=== PATIENT | female | born 1980 | race Caucasian/White ===

== ENCOUNTER → 2017-12-04 10:33 | Outpatient (CLI) | payer BC, SELFPAY ==
--- NOTE | 2017-12-04 10:49 | XR_ITS ---
XR clavicle LT COMPARISON: None HISTORY: Right clavicular and shoulder pain TECHNIQUE: 2 views right clavicle FINDINGS: There is no fracture or dislocation. The AC joint appears normal. Humeral head and glenoid appear normal. There are no soft tissue calcifications. IMPRESSION: Negative right clavicle
--- NOTE | 2017-12-04 10:49 | XR_ITS ---
EXAM: XR cervical spine 5V HISTORY: ITS.REASON: RT CLAVICLE PAIN,C-SPINE PAIN ORDERING PHYSICIAN: Dominga Ritchie PATIENT AGE: 37 years COMPARISON: None FINDINGS: There is straightening of the normal curvature suggesting mild muscle spasm. There is mild disc space narrowing at the C5-6 level with minimal anterior and posterior osteophytic spurring. The remaining disc spaces appear normal. Oblique films show normal neural foramina bilaterally. The prevertebral soft tissues are normal and the odontoid is normal. . IMPRESSION: Findings of mild muscle spasm along with mild degenerative disc disease C5-6
== END ==
PROVIDERS: PCP Nurse Practitioner Family; Visit Provider Nurse Practitioner Family
DX: M54.2 Cervicalgia (principal); M89.8X1 Other specified disorders of bone, shoulder
CPT/HCPCS: 72050; 73000

== ENCOUNTER → 2018-09-10 10:06 | Outpatient (CLI) | payer BC, SELFPAY ==
[2018-09-10 10:54] LABS: Basophils % 0.1 % (0.1-2.0); Eosinophils % 0.5 % (0.1-12.0); Hematocrit 43.7 % (37.0-47.0); Hemoglobin 14.6 g/dL (12.2-16.2); Lymphocytes # 1.4 K/mm3 (0.7-4.5); Lymphocytes % 20.7 % (10-50); Mean Corpuscular HGB Conc 33.4 g/dL (31.8-35.4); Mean Corpuscular Hemoglobin 30.9 pg (27.0-31.2); Mean Corpuscular Volume 92.6 fl (81-99); Mean Platelet Volume 7.1 fl (7.4-10.4); Monocytes # 0.3 K/mm3 (0.1-1.0); Neutrophils # 5.2 K/mm3 (1.8-7.8); Neutrophils % 74.7 % (37.0-80.0); Platelet Count 269 K/mm3 (142-424); Red Blood Count 4.72 M/mm3 (4.20-5.40); Red Cell Distribution Width 12.7 % (11.5-17.5); White Blood Count 6.9 K/mm3 (4.8-10.8)
[2018-09-10 11:08] LABS: HCG Qualitative, Serum Negative (Negative)
[2018-09-10 16:13] LABS: Anion Gap 14.5 mEq/L (5-15); Blood Urea Nitrogen 9 mg/dL (7-18); Calcium 8.9 mg/dL (8.5-10.1); Carbon Dioxide 25 mmol/L (21.0-32.0); Chloride 104 mmol/L (98-107); Creatinine,Serum 0.62 mg/dL (0.55-1.02); Estimated Glomerular Filt Rate 108 ml/min (>60); Free Thyroxine Index 2.3 ug/dL (5.93-13.13); GFR (African American) 130 ML/MIN (>60); Glucose 93 mg/dL (74-106); Potassium 4.5 mmoL/L (3.5-5.1); Sodium 139 mmol/L (136-145); T4 (Thyroxine) 7.1 ug/dl (4.7-13.3); Thyroid Stimulating Hormone 1.11 uIU/ml (0.358-3.740); Triiodothryronine (T3) Uptake 32 % (31-39)
== END ==
PROVIDERS: Visit Provider Nurse Practitioner Obstetrics & Gynecology
DX: Z01.818 Encounter for other preprocedural examination (principal); R53.82 Chronic fatigue, unspecified
CPT/HCPCS: 36415; 80048; 84436; 84443; 84479; 84703; 85025

== ENCOUNTER → 2019-01-27 16:34 | Outpatient (CLI) | payer BC, SELFPAY ==
--- NOTE | 2019-01-27 16:37 | US_ITS ---
PROCEDURE: US TRANSVAGINAL CLINICAL INDICATION: Heavy Bleeding, pelvic pain, endometriosis Heavy painful periods COMPARISON: No exams were available for comparison FINDINGS: Uterus measures 8 x 4 x 4 cm with a combined endometrial thickness of 7 mm. No uterine mass is evident. The right ovary is 2.8 x 2 cm and contains a central cystic area of approximately 1 cm. Blood flow is present to the right ovary. There has been prior left oophorectomy. No cul-de-sac fluid apparent. IMPRESSION: Prior left oophorectomy otherwise negative pelvic ultrasound Dictated by: Nilesh Penn MD 01/27/2019 18:10 Electronically signed by Nilesh Penn MD in [place] 01/27/2019 18:10
== END ==
PROVIDERS: PCP Family Medicine; Visit Provider Nurse Practitioner Obstetrics & Gynecology
DX: N80.9 Endometriosis, unspecified (principal); N92.0 Excessive and frequent menstruation with regular cycle; N94.6 Dysmenorrhea, unspecified; R10.2 Pelvic and perineal pain
CPT/HCPCS: 76830

== ENCOUNTER 2019-03-05 06:12 | Observation (INO) ==
--- NOTE | 2019-03-05 07:11 | Progress Note ---
[facility] Anesthesia Checklist - Patient Identification Patient Identification: Arm Band, Verbal (Name & ) - Structural Data Admitted From: Home Planned Operative Procedure/s: LAVH Consent for Planned Operative Procedure(s) Verified: Yes Verified Documents: Surgical Consent, History and Physical - NPO Status Verified Time NPO: 20:30 - Chart Verification Results Verified: CBC, BMP - Additional verifications Anesthesia Reactions: No Hx Blood Transfusions: Yes Blood Transfusion Reaction: No - Airway Assessment C-Spine Mobility Assessed: Yes TMJ Mobility Assessed: Yes Dentition: Good Dentition - Neurological Assessment Level of Consciousness: Awake, Alert, Appropriate, Follows Commands Hx Seizures: No Numbness or tingling in extremities: No - Anesthesia Plan Anesthesia Risk discussed: Yes Anesthesia Plan: Verified ASA Class: I Anesthesia Type: General [facility] History I have reviewed the patient's past medical history: Yes Medical History: Denies:: Cancer, Diabetes Mellitus Type 1, Diabetes Mellitus Type 2, Internal Pacemaker, MRSA, Seizures *Have you ever received a pneumonia vaccine?: No *Have you received a flu vaccine this season?: No Other Medical History: Denies: Blood Transfusion Reaction Anesthesia experience/problems:: No complications Other Surgeries: Yes: Cholecystectomy, Other. 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
[2019-03-05 07:16] LABS: Basophils % 0.3 % (0.1-2.0); Eosinophils # 0.1 K/mm3 (0.0-0.4); Eosinophils % 2.2 % (0.1-12.0); Hematocrit 43.5 % (37.0-47.0); Hemoglobin 14.3 g/dL (12.2-16.2); Lymphocytes # 1.4 K/mm3 (0.7-4.5); Lymphocytes % 22.8 % (10-50); Mean Corpuscular HGB Conc 32.8 g/dL (31.8-35.4); Mean Corpuscular Volume 96.5 fl (81-99); Monocytes # 0.3 K/mm3 (0.1-1.0); Monocytes % 5.4 % (1.7-9.3); Neutrophils # 4.2 K/mm3 (1.8-7.8); Neutrophils % 69.4 % (37.0-80.0); Platelet Count 307 K/mm3 (142-424); Red Blood Count 4.51 M/mm3 (4.20-5.40); Red Cell Distribution Width 12.9 % (11.5-17.5); White Blood Count 6.1 K/mm3 (4.8-10.8)
[2019-03-05 07:27] LABS: Anion Gap 15.9 mEq/L (5-15); Calcium 8.8 mg/dL (8.5-10.1)
--- NOTE | 2019-03-05 09:35 | Progress Note ---
[facility] Anesthesia Record Part II Discharge Time: 10:02 Destination: Medical Surgical Department PACU nurse assessment reviewed?: Yes Patient Condition:: Good Anesthesia Complications:: None Swallowing reflex intact?: Yes Cyanosis?: No
--- NOTE | 2019-03-05 09:35 | Progress Note ---
[facility] Anesthesia Record Part I Intake, IV Amount: 1,000 Estimated blood loss (mL): 250 Urine output (mL): 25 Blood Products used (#): none Blood Pressure: 111/83 SaO2: 97 Pulse Rate: 108 Respiratory Rate: 10 Temperature: 99.4 F Patient is:: Awake, Drowsy, Stable Stable to PACU at:: 09:32
--- NOTE | 2019-03-05 09:39 | Operative Note ---
Date of procedure: 03/05/19 Pre-op Diagnosis:: Pelvic pain, dysmenorrhea, history of endometriosis Post-op Diagnosis:: Pelvic pain, dysmenorrhea, endometriosis, subserous fibroid Procedure performed:: Laparoscopically assisted vaginal hysterectomy, right salpingectomy Surgeon:: Teo Lewis MD Uniform Patrol Police Officer(s):: Nga Harvey ASSOCIATE MEDIA PLANNER:: Piter Phipps Anesthesia: GETA Estimated blood loss (mL): 250 Clinical Note:: She is a 39-year-old 3 para 2 aborta 1 who has a history of endometriosis. She has had previous laparoscopic surgery for this. She is had a previous left salpingo-oophorectomy. She continued to have severe pelvic pain, dysmenorrhea, dyspareunia. After having discussed the risks and benefits she elected to have a laparoscopically assisted vaginal hysterectomy and right salpingectomy. Operative findings:: She had an anteverted slightly bulky uterus. There was a 1 cm subserosal pedunculated fibroid on the fundus of the uterus. There were thick adhesions along the bladder from her previous section. Her left ovary and tube were absent. There was black powder burn areas on the posterior cervix consistent with endometriosis. The right ovary and tube appeared normal. The upper abdomen appeared normal. The rest of the deep pelvis appeared normal. Operative note:: She was taken to the operating room where general anesthesia was found be adequate. She was prepped and draped in normal sterile fashion in the semilithotomy position. A weighted speculum was placed in the vagina and the anterior lip of the cervix was grasped with a tenaculum. An acorn uterine manipulator was then placed within the cervical os. I then changed gloves. I injected 10 cc of 0.5% ropivacaine around the umbilicus and made a small incision within the umbilicus. I inserted a Veress needle into the abdominal cavity. The abdominal cavity was then insufflated with carbon dioxide gas to a pressure of 20 mmHg. I then inserted an 11 mm trocar under direct vision. I injected through and through the pubic hairline, made a small incision here and inserted a 5 mm trocar under direct vision. I identified the inferior epigastric arteries on the left side, went lateral to these and injected through and through. I then made a small incision and inserted an 11 mm trocar under direct vision. A similar 11 mm trocar was placed on the right side. I elected to open along the bladder flap with harmonic scalpel. I went from left round ligament to right round ligament. The left round ligament was then grasped and cut through with harmonic scalpel. I then took down the posterior aspect of the broad ligament to the level of the uterosacral ligament. I then skeletonized the uterine arteries on the left side and placed hemoclips on these. Using the harmonic scalpel on coagulation mode adjacent to the cervix I then took down these uterine arteries. I then further freed up the bladder anteriorly and laterally on the left side. I then turned my attention to the right side where I grasped the right round ligament. I then cut through the right round ligament. I further dissected the bladder off. The right tube was then cut followed by the right utero- ovarian ligament. The posterior aspect of the right broad ligament was then ta nahomi down with harmonic scalpel. I skeletonized the uterine arteries on the right side. I applied hemoclips to the uterine arteries and staying adjacent to the cervix on the right side I took down the uterine arteries with harmonic scalpel on coagulation mode. I further freed up the bladder. We then assured hemostasis. I then grasped the distal end of the right tube and using harmonic scalpel I cut along the mesosalpinx. The tube was removed through the 11 mm trocar site. After once again assuring hemostasis we then turned our attention to the vaginal portion of the surgery. The patient was placed in the lithotomy position and a weighted speculum was placed in the vagina. The anterior and posterior lip of the cervix were grasped with Patiño tenacula. I then injected 20 cc of 1% Xylocaine with epinephrine circumferentially about the cervix. I then circumscribed the cervix. I opened up in the posterior cul-de-sac using Auguste scissors. I then placed a long weighted speculum through the defect. The left uterosacral ligament was then clamped cut and suture-ligated and tagged. This was followed by the left cardinal ligament which was clamped cut and suture-ligated. I then clamped cut and suture-ligated and tagged the right uterosacral ligament. This was followed by the right cardinal ligament which was clamped cut and suture-ligated. I then grasped the anterior vaginal mucosa and using both sharp and blunt dissection dissected off the bladder. I then opened sharply into the anterior cul-de-sac. A [place] retractor was placed through this defect. Both left and right uterine arteries were then clamped cut and suture-ligated. This freed up the uterus and it was removed through the vagina. Then inserted a short weighted speculum. Posterior cuff was then closed using running 2-0 Vicryl suture in a locked fashion. I then placed a Wilkerson suture using 0 PDS. I passed it through the vagina and the peritoneum and then through the left perirectal fascia. I then plicated across the posterior peritoneum and through the right perirectal fascia. This was then passed through the peritoneum and vagina and left to be tied at the end. I then grasped the anteri or peritoneum and using 2-0 PDS suture in a pursestring fashion I closed the peritoneum. The vaginal cuff was then closed using running 0 Vicryl suture in a locked fashion from left to right from anterior to posterior. A Pastor cath was then placed in the bladder. Clear urine was seen to flow. I then changed gloves and once again insufflated the abdominal cavity with carbon dioxide gas. Hemostasis was once again assured and I rinsed the pelvis. There was a small amount of bleeding at the utero-ovarian ligament adjacent to the ovary and I placed hemoclips here to obtain excellent hemostasis. I then sprayed Anitha all around the pelvis. I injected approximately 20 cc of 0.5% ropivacaine into the pelvis. I let the gas out of the abdomen and once again hemostasis was assured. The secondary trochars were then removed under direct vision and the sites were hemostatic. The primary trocar and camera were removed together. No bowel was seen to follow. The 11 mm trocar sites were closed deeply with [id number] 2-0 Vicryl suture followed by running subcuticular 4-0 Monocryl suture. 5 mm trocar site was closed with subcuticular 4-0 Monocryl suture. Sterile dressings were applied. The patient tolerated procedure well and was taken to the recovery room in excellent condition. All sponge instrument and needle counts were correct. The estimated blood loss was approximately 250 cc. Condition: stable Disposition: PACU Specimens:: Uterus and right fallopian tube Complications:: None
--- NOTE | 2019-03-05 15:56 | Pharmacy Consult Notes ---
[facility] Pharmacy VTE Monitoring - Patient Demographics Admission date: 03/05/19 Report Date: 03/05/19 Time: 15:56 Allergies/Adverse Reactions: Patient Allergies No Known Allergies Allergy (Verified 03/04/19 10:47) Height: 1.52 m Weight: 68.492 kg - VTE Risk Labs: VTE Related Lab Results Hgb 14.3 g/dL (12.2-16.2) 03/05/19 06:45 Hct 43.5 % (37.0-47.0) 03/05/19 06:45 Plt Count 307 K/mm3 (142-424) 03/05/19 06:45 BUN 14 mg/dL (7-18) 03/05/19 06:45 Creatinine 0.63 mg/dL (0.55-1.02) 03/05/19 06:45 Estimated Creat Clear 130 mL/min (50-200) 03/05/19 06:45 Was VTE Risk Assessment Performed: Yes VTE Score: 0 VTE Risk Level: Low Risk Clinical Trial Participant: No - Prophylaxis VTE Prophylaxis Ordered?: Yes Types of VTE Prophylaxis: Pharmacological Location of Applied Device: Bilateral Lower Extremeties Pharmacologic Type: Enoxaparin
[2019-03-05 16:11] LABS: Hematocrit 41.2 % (37.0-47.0); Hemoglobin 13.2 g/dL (12.2-16.2)
[2019-03-06 06:52] LABS: Basophils % 0.1 % (0.1-2.0); Eosinophils % 0.4 % (0.1-12.0); Hematocrit 35.8 % (37.0-47.0); Lymphocytes # 1.8 K/mm3 (0.7-4.5); Lymphocytes % 22.3 % (10-50); Mean Corpuscular HGB Conc 32.5 g/dL (31.8-35.4); Mean Corpuscular Volume 94.6 fl (81-99); Mean Platelet Volume 8.1 fl (7.4-10.4); Monocytes # 0.5 K/mm3 (0.1-1.0); Monocytes % 5.8 % (1.7-9.3); Neutrophils # 5.6 K/mm3 (1.8-7.8); Neutrophils % 71.4 % (37.0-80.0); Platelet Count 266 K/mm3 (142-424); Red Blood Count 3.78 M/mm3 (4.20-5.40); Red Cell Distribution Width 12.7 % (11.5-17.5); White Blood Count 7.9 K/mm3 (4.8-10.8)
[2019-03-06 06:57] LABS: Anion Gap 9.7 mEq/L (5-15); Calcium 8.5 mg/dL (8.5-10.1)
[2019-03-06 07:33] LABS: Hemoglobin 11.7 g/dL (12.2-16.2)
--- NOTE | 2019-03-06 08:45 | Discharge Summary ---
General - General Admission date:: 03/05/19 Discharge date: 03/06/19 HPI HPI: She is a 39-year-old lady that complains of severe pain with intercourse as well as severe pain with her periods. She has been diagnosed with endometriosis in the past. As a result of this we have elected to perform a laparoscopic- assisted vaginal hysterectomy and right salpingectomy. She has had a previous LSO. Hospital Course Hospital Course: On March 05, 2019 she underwent a laparoscopically assisted vaginal hysterectomy and right salpingectomy. She has done well postoperatively and has remained afebrile throughout her hospitalization. She is eating and drinking and ambulating. Her pain is well controlled. She denies any chest pain, shortness of breath or calf tenderness. She is discharged home to follow-up with me in approximately 2 weeks time. She will take ibuprofen and was given a prescription for Percocet 5/325 number 20 tablets. She will keep her incisions clean and dry. She will change a Band-Aid as needed. She was given the usual instructions with respect to limiting her activity, driving and sexual activity. Her condition on discharge is stable. Objective Vital signs: Temp Pulse Resp BP Pulse Ox 97.9 F 86 18 122/86 100 03/06/19 08:00 03/06/19 08:00 03/06/19 08:00 03/06/19 08:00 03/06/19 08:00 no acute distress - *Routine HEENT Exam Head: Present: normocephalic - *Routine Respiratory Exam Absent: accessory muscle use, respiratory distress Comments: She has good air entry bilaterally. - *Routine Cardiovascular Exam Present: RRR - *Routine Abdominal Exam Present: soft Comments: Her incisions are clean and dry. There is a small amount of bruising around the left lower quadrant incision but has not grown any larger. We had marked it yesterday with a sharpie - *Routine Extremities Exam Absent: cyanosis, edema Results Labs on day of discharge: Labs from last 24 hours 03/06/19 03/06/19 03/05/19 06:18 06:18 16:02 WBC 7.9 D RBC 3.78 L Hgb 11.7 L D 13.2 Hct 35.8 L 41.2 MCV 94.6 MCH 30.7 MCHC 32.5 RDW 12.7 Plt Count 266 MPV 8.1 Neut % (Auto) 71.4 Lymph % (Auto) 22.3 [place] % (Auto) 5.8 Eos % (Auto) 0.4 Baso % (Auto) 0.1 Neut # (Auto) 5.6 Lymph # (Auto) 1.8 [place] # (Auto) 0.5 Eos # (Auto) 0.0 Baso # (Auto) 0.0 Sodium 141 Potassium 3.7 Chloride 107 Carbon Dioxide 28 D Anion Gap 9.7 BUN 7 D Creatinine 0.67 Estimated Creat Clear 122 Estimated GFR 98 Est GFR ( Amer) 119 Glucose 97 Calcium 8.5 Urine Color Urine Appearance Urine pH Ur Specific Foley Urine Protein Urine Glucose (UA) Urine Ketones Urine Blood Urine Nitrate Urine Bilirubin Urine Urobilinogen Ur Leukocyte Esterase Urine RBC Ur Squamous Epith Cells Urine Bacteria 03/05/19 08:52 WBC RBC Hgb Hct MCV MCH MCHC RDW Plt Count MPV Neut % (Auto) Lymph % (Auto) [place] % (Auto) Eos % (Auto) Baso % (Auto) Neut # (Auto) Lymph # (Auto) [place] # (Auto) Eos # (Auto) Baso # (Auto) Sodium Potassium Chloride Carbon Dioxide Anion Gap BUN Creatinine Estimated Creat Clear Estimated GFR Est GFR ( Amer) Glucose Calcium Urine Color Yellow Urine Appearance Clear Urine pH 6.0 Ur Specific Foley 1.020 Urine Protein Negative Urine Glucose (UA) Negative Urine Ketones Negative Urine Blood 2+ Urine Nitrate Negative Urine Bilirubin Negative Urine Urobilinogen 0.2 Ur Leukocyte Esterase Negative Urine RBC Occasional Ur Squamous Epith Cells Occasional Urine Bacteria Trace DS: Diagnosis - Discharge Diagnosis (1) Dyspareunia Status: Acute (2) Dysmenorrhea Status: Acute (3) Fibroids, subserous Status: Acute (4) Endometriosis Status: Acute Discharge Plan - Patient Discharge Instructions ACTIVITY: No heavy lifting DIET: continue same diet - Follow up Plan Disposition: Home, Self-Snf Medications: Home Medications Medication Instructions Recorded Confirmed Type No Known Home Medications 09/10/18 03/04/19 History Oxycodone HCl/Acetaminophen 1 - 2 tab PO Q4-6H PRN #20 tab 03/06/19 Rx [Percocet 5/325mg tablet] Prescriptions/Medication Reconciliation: New Oxycodone HCl/Acetaminophen [Percocet 5/325mg tablet] 1 - 2 tab PO Q4-6H PRN #20 tab PRN Reason: Severe Pain No Action No Known Home Medications - Problem Reconciliation Problems Reviewed?: Yes
--- OUTSIDE RECORDS SUMMARY | 2019-03-06 09:30 | External Medical Summary | Continuity of Care Document ---
:1980 Author Organization [facility] Address [address] [place] [address] Eas t [place] [address] Phone Care Team Providers Name Role Phone Joshua Attending Provider Chau Primary Care Provider Mirta Ortiz Primary Care Provider Allergies, Adverse Reactions, Alerts No known allergies. Medications No known medications. Problems Active Problems Medical Problem Onset Date Status Fibroids, subserous Active Dysmenorrhea Active Dyspareunia Active Endometriosis Active Procedures Procedure Date Performed Status US transvaginal January 27, 2019 completed Laparoscopic Assisted Vaginal Hystectomy (Not March 05, 2019 7:49am completed Applicable) March 05, 2019 7:30am completed March 05, 2019 7:30am completed March 05, 2019 7:30am completed Relevant Diagnostic Tests and/or Laboratory Data Laboratory Results Test Date/Time Result Interpretation Reference Result Perfo rming Range Comment Site White Blood February 7.9 K/mm3 4.8-10.8 Delta: [facility], [address] [place] [address] E Count 2018 6.1 on 6:18am 03/05/19- [place] [id number] Red Blood Count February 3.78 M/mm3 4.20-5.40 [facility], [address] [place] [address] 36 E 2018 6:18am [place] [address] Hemoglobin February 11.7 g/dL 12.2-16.2 Delta: [place] [address] E 2018 13.2 on 6:18am 03/05/19- [place] [address] 1602 Hematocrit October 35.8 % 37.0-47.0 [facility], [address] [place] [address] E 2018 6:18am [place] [address] Mean February 94.6 fl 81-99 [facility], [address] [place] [address] E Corpuscular 2018 Volume 6:18am [place] [address] Mean February 30.7 pg 27.0-31.2 [facility], [address] [place] [address] E Corpuscular 2018 Hemoglobin 6:18am [place] 84147 Mean February 32.5 g/dL 31.8-35.4 [facility], [address] [place] [address] E Corpuscular 2018 Hemoglobin 6:18am [place] [address] Concent Red Cell February 12.7 % 11.5-17.5 [facility], [address] [place] [address] E Distribution 2018 Width 6:18am [place] [address] Platelet Count February 266 K/mm3 142-424 [facility], [address] [place] [address] E 2018 6:18am [place] 533[address] Mean Platelet February 8.1 fl 7.4-10.4 [facility], [address] [place] [address] E Volume 2018 6:18am [place] 43785 Neutrophils (%) February 71.4 % 37.0-80.0 [facility], [address] [place] [address] E (Auto) 2018 6:18am [place] 10549 Lymphocytes (%) February 22.3 % 10-50 [facility], [address] [place] [address] E (Auto) 2018 6:18am [place] [address] Monocytes (%) February 5.8 % 1.7-9.3 [facility], [address] [place] [address] E (Auto) 2018 6:18am [place] [address] Eosinophils (%) February 0.4 % 0.1-12.0 [facility], [address] [place] [address] E (Auto) 2018 6:18am [place] [address]14[address] Basophils (%) October 0.1 % 0.1-2.0 [place] [facility], [address] [place] [address] 36 E (Auto) 2018 6:18am [place] [address] Neutrophils # October 5.6 K/mm3 1.8-7.8 [facility], [address] [place] [address] 36 E (Auto) 2018 6:18am [place] [address]269 Lymphocytes # October 1.8 K/mm3 0.7-4.5 [facility], [address] [place] [address] E (Auto) 2018 6:18am [place] [address] Monocytes # October 0.5 K/mm3 0.1-1.0 [facility], [address] [place] [address] E (Auto) 2018 6:18am [place] 23785 Eosinophils # October 0.0 K/mm3 0.0-0.4 [facility], [address] [place] [address] E (Auto) 2018 6:18am [place] [address] Basophils # October 0.0 K/mm3 0-0.2 [facility], [address] [place] [address] E (Auto) 2018 6:18am [place] [address]74 Urine Color October Yellow Yellow [facility], [address] [place] [address] E 2018 8:52am [place] [address] Urine October Clear Clear [facility], [address] [place] [address] E Appearance 2018 8:52am [place] [address] Urine pH February 6.0 5.0-8.5 [facility], [address] [place] [address] E 2018 8:52am [place] [address]3798 Urine Specific October 1.020 1.005-1.030 [facility], [address] [place] [address] 36 E [place] 2018 8:52am [place] [address] Urine Protein October Negative Negative [facility], [address] [place] [address] E 2018 8:52am [place] [address] Urine Glucose October Negative Negative [facility], [address] [place] [address] E (UA) 2018 8:52am [place] [address] Urine Ketones October Negative Negative [facility], [address] [place] [address] 36 E 2018 8:52am [place] 84802 Urine Blood October 2+ Negative [facility], [address] [place] [address] 36 E 2018 8:52am [place] [address] Urine Nitrate October Negative Negative [facility], [address] [place] [address] 36 E 2018 8:52am [place] [address] Urine Bilirubin October Negative Negative [facility], [address] [place] [address] E 2018 8:52am [place] [address] Urine October 0.2 EU/dl [facility], [address] [place] [address] E Urobilinogen 2018 8:52am [place] 40[address] Urine Leukocyte October Negative Negative [facility], [address] [place] [address] E Esterase 2018 8:52am [place] [address] Urine RBC October Occasional # [facility], [address] [place] [address] 36 E 2018 /hpf 8:52am [place] [address] Urine Squamous October Occasional [facility], [address] [place] [address] E Epithelial 2018 #/hpf Cells 8:52am [place] [address] Urine Bacteria February Trace /lpf None [facility], [address] [place] [address] 36 E 2018 8:52am [place] [address]54[address] Urine HCG, October Negative Negative [facility], [address] [place] [address] 36 E Qualitative 2018 6:20am [place] [address] Sodium Level February 141 mmol/L 136-145 [facility], [address] [place] [address] 36 E 2018 6:18am [place] [address] Potassium Level February 3.7 mmoL/L 3.5-5.1 [facility], [address] [place] [address] 36 E 2018 6:18am [place] [address] Chloride Level February 107 mmol/L 98-107 [facility], [address] [place] [address] 36 E 2018 6:18am [place] [address] Carbon Dioxide February 28 mmol/L 21.0-32.0 Delta: 23 [facility], [address] [place] [address] E Level 2018 on 6:18am 03/05/19- [place] [address] 0645 Anion Gap February 9.7 mEq/L 5-15 [facility], [address] [place] [address] 36 E 2018 6:18am [place] [address] Blood Urea February 7 mg/dL -18 Delta: 14 [facility], [address] [place] [address] 36 E Nitrogen 2018 on 6:18am 03/05/19- [place] [address] 0645 Creatinine February 0.67 mg/dL 0.55-1.02 [facility], [address] [place] [address] 36 E 2018 6:18am [place] [address] Estimated October 122 mL/min 0-300 [facility], [address] [place] [address] 36 E Creatinine 2018 Clearance 6:18am [place] [address] Estimated GFR February 119 ML/MIN >59 [facility], [address] [place] [address] 36 E ( 2018 Gambian) 6:18am [place] [address] Estimat February 98 ml/min >59 [facility], [address] [place] [address] 36 E Glomerular 2018 Filtration Rate 6:18am [place] [address] Glucose Level February 97 mg/dL 74-106 [facility], [address] [place] [address] 36 E 2018 6:18am [place] [address] Calcium Level February 8.5 mg/dL 8.5-10.1 [facility], [address] [place] [address] 36 E 2018 6:18am [place] [address] Diagnostic Imaging Reports Report Dictated Date/Time Dictated By Status Radiology Report January 27, 2019 4:55pm [facility] [address] [place] [address] Ultrasoun d Report Sig jethro Patient: Elva Kim MR#: [id number] 3024 : 1980 Acct:[id number] Age/Sex: 39 / F ADM Date: 9 Loc: RAD Attending Dr: Teo Lewis MD Ordering Physician: Teo Lewis MD Date of Service: 01/27/19 Procedure(s): US transvaginal Accession Number(s): [id number] cc: Nilesh Penn MD; Rishi Ortiz MD~ PROCEDURE: US TRANSVAGINAL CLINICAL INDICATION: Heavy Bleeding, p elvic pain, endometriosis Heavy painful periods COMPARISON: No exams were available fo r comparison FINDINGS: Uterus measures 8 x 4 x 4 cm with a co mbined endometrial thickness of 7 mm. No uterine mass is evident. The right ovary is 2.8 x 2 cm and contains a central cystic area of a pproximately 1 cm. Blood flow is present to the right ovary. There h as been prior left oophorectomy. No cul-de-sac fluid appa rent. 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 F/U u/s OR Reason for Visit Dysmenorrhea Dyspareunia Endometriosis Fibroids, subserous Encounters Encounter Location(s) Arrival/Admit Date Discharge/Depart Date Provider(s) Departed [facility] Physician January 27, January 27, 2019 Junie hoa Lewis , Physician/[facility] 2019 2:40pm 4:14pm junie [facility] Joshua Visit Registered [facility] Physician January 27, Teo mcdermott , Clinical Group-Radiology 2018 4:34pm MD Admitted [facility] Physician March 05, 2019 Teo san , Inpatient Group-Obstetric 6:18am Registered [facility] Physician March 06, 2019 Teo san , Inpatient Group- 9:14am Recent Diagnosis Onset Date Dysmenorrhea Dyspareunia Endometriosis Fibroids, subserous Assessments Diagnosis Onset Date Resolution Status Dysmenorrhea acute Dyspareunia acute Endometriosis acute Fibroids, subserous acute Functional Status Observation Response Date Recorded Oral Care Ability Independent March 05, 2019 6 :19am Bathing Ability Independent March 05, 2019 6 :19am Eating (Feeding) Ability Independent March 05 019 6:19am Toileting Ability Independent March 05, 2019 6 :19am Ambulation Ability Independent March 05, 2019 6 :19am Functional status ambulatory January 27, 2019 4:03pm Goals No Goals Information Available Immunizations Immunization Event Date Not Given Dose Onion Tier Lot Number Va ccine Reason Number Informatio n Statement (VIS) Detail Td (adult), 5Lf December VIS not given tetanus toxoid, 2007 PF, adsorbed Mental Status Observation Response Date Recorded Comprehension Ability No Impairment March 06, 2019 8:00am Able to Read Yes March 05, 2019 6 :19am Able to Write Yes March 05, 2019 6 :19am Ability to Follow Directions Good February 6:36am Eye Contact Direct Eye Contact March 05, 2019 6 :19am Oral Expression Ability No Impairment March 05 6:19am Medical Equipment No Medical Equipment Information available Insurance Providers Guarantor Elva Kim Address [address] [facility] [address] Contact Info. Home Phone: Payer Policy Id Coverage Id Subscriber's Subscriber Id Effective E xpiration Name Date Date Qing Wallace [id number] Elva Kim [id number] Card 51 1 Program Out Self Pay Self N/A Plan of Treatment She has had a previous laparoscopy with removal of her appendix and one ovary and tube. She is not sure which ovary has been removed. She has a long history of endometriosis with dysmenorrhea and pelvic pain. She occasionally has dyspareunia and she has heavy periods. She would like to go ahead with a hysterectomy. We have suggested a laparoscopically assisted vaginal hysterectomy and salpingectomy. I would like to leave the remaining ovary if possible. We will make arranges for her to have a transvaginal ultrasound and some blood work. Today we discussed the risk of surgery that includes bleeding, infection, injury to bowel and bladder. We discussed the risk of laparotomy as result of her previous surgery. I quoted her about 10% that she may need a Pfannenstiel incision. We discussed the risks of injury to the ureter. We discussed the need for DVT prophylaxis. All questions were answered and consents were signed. Future Tests Future scheduled test information is unavailable Pending Tests Pending diagnostic test information is unavailable Future Visits Future appointment information is unavailable Referrals to Other Providers Reason for Referral Start Provider Provider Contact Provider Address Referral Date Information Admission to [facility] March [address] Future Procedures Future procedure information is unavailable Future Medications Future medication information is unavailable Patient Instructions Endometriosis Dyspareunia DI for Dysmenorrhea Social History Assigned Sex Female Vital Signs Vital Reading Result Reference Range Collection Date/ Time Height 152.4 cm January 27, 2019 2:52pm Weight 68.71 kg January 27, 2019 2:52pm BP Systolic 120 mm[Hg] 110-140 January 27, 2019 2:52pm BP Diastolic 74 mm[Hg] 60-90 January 27, 2019 2:52pm BMI (Body Mass Index) 29.5 kg/m2 January 27, 2019 2:52pm Height 152.4 cm March 05 6:22am Weight 68.49 kg March 05 6:22am Body Temperature 97.9 [degF] 97.6-99.6 March 06, 2 019 8:00am Heart Rate 86 /min -March 06 8:00am Respiratory rate 18 /min -March 06, 2 019 8:00am Oxygen saturation by Pulse 100 % 95-100 Octob 2018 8:00am oximetry BP Systolic 122 mm[Hg] 110-140 March 06 8:00am BP Diastolic 86 mm[Hg] 60-90 March 06 8:00am BMI (Body Mass Index) 29.5 kg/m2 March 052018 6:22am
== END 2019-03-06 09:47 | disposition home or self-care (01) ==
LOC: OR 06:12 → 2ND 06:18 → INTOOBSV 06:18 → OB 07:17
PROVIDERS: ADMIT Nurse Practitioner Obstetrics & Gynecology; ATTEND Nurse Practitioner Obstetrics & Gynecology
CPT/HCPCS: 36415; 80048; 81001; 81025; 85014; 85018; 85025; 96372; 96374; G0378; J2405

== ENCOUNTER 2019-10-08 14:14 | Emergency (ER) | payer BC, SELFPAY ==
[2019-10-08 14:29] VITALS: BP 170/101; PULSE 86; RESP 18; TEMP 36.8; O2SAT 99; BMI 30.1
--- NOTE | 2019-10-08 14:37 | HMH.EDUTC ---
[facility] [place]ression[place] Right leg pain Disposition: Home, Self-Care Condition on Discharge: Good Instructions: DI for Leg Pain Additional Instructions: Rest the extremity, Elevate the extremity as tolerated while you are resting. Take ibuprofen for pain. I sent in a prescription to your pharmacy. Follow up with Dr. Davies (orthopedics) if your pain continues. I put in a referral but you'd need to call her office and schedule an appointment. Follow up with your regular doctor. GO TO THE ER FOR ANY WORSENING SYMPTOMS Prescriptions: Ibuprofen [Ibuprofen 800mg Tablet] 800 mg PO Q8HP PRN #30 tab PRN Reason: Moderate Pain Transmission Status: Received by [facility] #[id number] Referrals: Dominga Ritchie APRN [Primary Care Provider] - Fannie Davies MD [Physician] - Time of Disposition: 15:27 Medical Decision Making - Medical Records Medical records reviewed: No: I reviewed the patient's medical records. - [place] Inquiry Pt receiving controlled substance: No Vital Signs: 10/08/19 14:29 10/08/19 14:52 10/08/19 15:23 Temperature 98.2 F 98.2 F Temperature Source Oral Pulse Rate 86 Pulse Rate [Right Brachial] 86 Respiratory Rate 18 18 Blood Pressure 143/94 H Blood Pressure [Left Arm] 143/94 H Blood Pressure [Right Arm] 170/101 H Blood Pressure Mean [Left Arm] 110 Blood Pressure Mean [Right Arm] 124 Blood Pressure Source [Left Arm] Automatic Cuff Blood Pressure Source [Right Arm] Automatic Cuff Blood Pressure Position [Left Arm] Sitting Blood Pressure Position [Right Arm] Sitting 02 Sat by Pulse Oximetry 99 Oxygen Delivery Method Room Air - US Data US Images: Lower Extremity ED US Reviewed: Yes: I have reviewed the patient's US results, I have viewed radiologist's interpretation Preliminary Findings: Normal/NAD Findings Narrative: negative for DVT [facility] [place] - General Stated complaint: righ leg pain in lower leg Time Seen by Provider: 10/08/19 14:37 Mode of Arrival: Ambulatory Source of Information: Patient Limitations: No Limitations Description of Symptoms (Recalled from Triage Doc. by RN): PATIENT C/O RIGHT CALF AND KNEE PAIN AND SWELLING SINCE LAST NIGHT. NO KNOWN INJURY. STATES THAT PAIN OCCURS WITH EXTENTION OF FOOT. STRONG PEDAL PULSE NOTED HEENT Symptoms (Recalled from RN notes): No Resp Symptoms (Recalled from RN notes): No Skin Symptoms (Recalled from RN notes): No MS Symptoms (Recalled from RN notes): Yes Functional Status (Recalled from RN notes): WNL - History of Present Illness Provider Complaint: She c/o right calf pain that is worse with flexing and extending her foot since yesterday. She also states that her right calf seems a little swollen. She denies any family or personal history of dvt. She does not take hormonal control. She does smoke though. - Related Data Previous Rx's Medication Instructions Recorded Ibuprofen [Ibuprofen 800mg 800 mg PO Q8HP PRN #30 tab 10/08/19 Tablet] Allergies Allergy/AdvReac Type Severity Reaction Status Date / Time No Known Allergies Allergy Verified 03/20/19 11:00 - Worker's Comp Is this a Worker's Comp case?: No [facility] History - Hepatitis A Screen Drug use history?: No High risk sexual behaviors?: No History of sexually transmitted infection?: No Currently employed?: No Childcare worker?: No Do you have indoor plumbing?: Yes Do you have electricity?: Yes Attestation statement:: This patient has been screened for Hepatitis A risk factors. I have reviewed the patient's past medical history: Yes Medical History: Denies:: Cancer, Diabetes Mellitus Type 1, Diabetes Mellitus Type 2, Internal Pacemaker, MRSA, Seizures Other Medical History: Denies: Blood Transfusion Reaction Other Surgeries: Yes: Cholecystectomy, Hysterectomy-Total, Other. No: Pacemaker Amputation: No Fractures: No - Social History Sm[facility] Status: [facility]
--- NOTE | 2019-10-08 14:45 | CA_ITS ---
APPROVED REPORT Right Lower Extremity Venous Study for DVT. On Air Talent: Ashli Boyce RVT Indications Lower Extremity Pain: Right Lower Extremity Edema: Right PAIN/SWELLING TO CALF Vein Imaging CFV (R): compressive, spontaneous, phasic, augmentation FEM (R): compressive, spontaneous, phasic, augmentation POP (R): compressive, spontaneous, phasic, augmentation PTV (R): Compressible GSV (R): Compressible Peroneals (R):Compressible GAS (R): Compressible Findings Study suggests no evidence of DVT of the right lower extremity. Study suggests no evidence of SVT of the right lower extremity. Conclusion No evidence of DVT or superficial thrombophlebitis in the veins scanned of the right lower extremity. Electronically signed by : Nilesh Penn MD 10/09/2019 16:32:27
[2019-10-08 14:52] VITALS: BP 143/94
[2019-10-08 15:23] VITALS: BP 143/94; PULSE 86; RESP 18; TEMP 36.8; O2SAT 99
== END 2019-10-08 15:32 | disposition home or self-care (01) ==
PROVIDERS: Emergency Provider Nurse Practitioner Family; PCP Nurse Practitioner Family
DX: M79.604 Pain in right leg (principal); F17.210 Nicotine dependence, cigarettes, uncomplicated; Z90.49 Acquired absence of other specified parts of digestive tract; Z90.79 Acquired absence of other genital organ(s); Z86.718 Personal history of other venous thrombosis and embolism
CPT/HCPCS: 93971; 99202

== ENCOUNTER 2021-01-01 10:47 | Emergency (ER) | payer BC, SELFPAY ==
[2021-01-01 10:48] VITALS: BP 143/94; PULSE 103; RESP 18; TEMP 36.7; O2SAT 100; BMI 27.3
--- NOTE | 2021-01-01 11:07 | HMH.EDGENADL ---
ED Disposition Clinical Impression: Anal pain Disposition: Home, Self-Care Condition on Discharge: Good Additional Instructions: Warm sits baths may help. Continue using Preparation H topically. Lidocaine as needed. May also use ibuprofen for pain. Follow-up with primary care provider next week. Prescriptions: lidocaine HCL [Lidocaine 2% jelly 5mL tube] 1 applic TOPICAL QIDP PRN #1 tube PRN Reason: Moderate To Severe Pain Transmission Status: Pending to [facility] #[id number] Referrals: Dominga Ritchie APRN [Primary Care Provider] - - Critical Care Critical Care Time: No Attestation: On 01/01/21, the high probability of a clinically significant, sudden or life threatening deterioration of the following system(s) required my full and direct attention, intervention and personal management. The time I documented below is in addition to time spent performing reported procedures but includes the following listed in this critical care notation. Medical Decision Making - [place] Inquiry Pt receiving controlled substance: No Vital Signs: 01/01/21 10:48 Temperature 98.1 F Temperature Source Oral Pulse Rate [Left Radial] 103 H Respiratory Rate 18 Blood Pressure [Right Arm] 143/94 H Blood Pressure Mean [Right Arm] 110 Blood Pressure Source [Right Arm] Automatic Cuff Blood Pressure Position [Right Arm] Sitting 02 Sat by Pulse Oximetry 100 Oxygen Delivery Method Room Air Orders (Tests/Meds): ED MEDICATIONS Discontinued Medications Generic Name Dose Route Start Last Admin Trade Name Freq PRN Reason Stop Dose Admin Lidocaine HCl 5 ml 01/01/21 11:44 01/01/21 11:46 Lidocaine 2% Jelly 5ml Tube TOPICAL 01/01/21 11:45 5 ml ONCE ONE Administration - Reevaluation(s) Time: 12:00 Reevaluation #1: Some relief obtained with lidocaine General Adult HPI - General Stated complaint: severe rectal pain possible hemmorhoid Time Seen by Provider: 01/01/21 11:35 - History of Present Illness HPI narrative: Complains of anal pain. States that she has a history of what she believed to be an external hemorrhoid, a skin tag which she has had for years. For the past couple of weeks she has had a burning sensation in that area. She has been using Preparation H. Yesterday she used a Preparation H suppository and says afterwards of course I had an aggressive bowel movement after using the suppository and ever since then she has had severe burning pain in the anal area. No bleeding. She says the skin tag seems to be gone now. She wonders whether it went back up inside . She does not feel constipated. She has had bowel movements since her aggressive bowel movement yesterday. - Related Data Previous Rx's Medication Instructions Recorded phentermine 37.5 mg tablet 37.5 mg PO DAILY #30 tab 12/10/20 lidocaine HCL [Lidocaine 2% jelly 1 applic TOPICAL QIDP PRN #1 tube 01/01/21 5mL tube] Allergies Allergy/AdvReac Type Severity Reaction Status Date / Time No Known Allergies Allergy Verified 12/09/20 12:10 [facility] History - Hepatitis A Screen Attestation statement:: This patient has been screened for Hepatitis A risk factors. I have reviewed the patient's past medical history: Yes Medical History: Denies:: Cancer, Diabetes Mellitus Type 1, Diabetes Mellitus Type 2, Internal Pacemaker, MRSA, Seizures Other Medical History: Denies: Blood Transfusion Reaction Other Surgeries: Yes: Cholecystectomy, Hysterectomy-Total ([facility]), Other. No: Pacemaker Amputation: No Fractures: No - Social History Smoking Status: Never smoker Alcohol Intake: never Substance Use Type: denies use Occupational Status: other Housing: house Household Members: spouse Family Hx:: Kidney Disease, Hypertension, Diabetes, Coronary Artery Disease [employer] history: Ectopic , Uterine Fibroids, Endometriosis ROS Obtained: Yes Systems reviewed as appropriate & no additional complaints - Con
[2021-01-01 12:11] VITALS: BP 123/48; PULSE 84; RESP 18; TEMP 36.7; O2SAT 100
== END 2021-01-01 12:11 | disposition home or self-care (01) ==
PROVIDERS: Emergency Provider Emergency Medicine; PCP Nurse Practitioner Family
DX: K62.89 Other specified diseases of anus and rectum (principal)
CPT/HCPCS: 99281